=== PATIENT | female | born 1945 | race Caucasian/White ===

== ENCOUNTER 2017-07-12 08:47 | Emergency (ER) | payer MEDICARE ==
[2017-07-12] MEDS ORDERED: Albuterol/Ipratropium NEB.SOL* Albuterol 2.5 MG/Ipratropium 0.5 MG 3 ML INH ONE ×2 (09:41→11:46)
--- NOTE | 2017-07-12 09:46 | ED ---
Respiratory - HPI Summary HPI Summary: 71 female presents to ED with complaints of shortness of breath and trouble breathing that has been ongoing for the past month that has worsened today. States her symptoms seemed to worsen yesterday and it became very hard for her to breathe. Patient has been being treated by PCP Dr Malik outpatient for the past couple of weeks. Given steroid and albuterol with steroid that did give relief at first. However has been done with those medications for the past week. Patient has only been using albuterol inhaler which she states makes her cough more. Admits to nasal congestion, chronic sinus congestion, productive cough at times, producing mucus. Denies hemoptysis, sore throat and ear pain. Denies chest pain, abdominal pain, nausea, vomiting, and known fever/chills. States she has never had symptoms like these in the past. No respiratory history other than sarcoidosis a few years ago. No other complaints. Admits to being sitting in recliner often over the past couple of weeks due to trouble breathing. No long distance travel or cigarette use. Other rangel healthy. PMHx includes fibromyaglia, GERD, depression, sleep apnea. Denies leg swelling or leg pain. Exertion makes SOB worse however she is still SOB at rest. - History of Current Complaint Chief Complaint: EDUpperRespComplaint Stated Complaint: DIFFICULTY BREATHING Time Seen by Provider: 07/12/17 09:05 Hx Obtained From: Patient Onset/Duration: Sudden Onset, Lasting Weeks, Still Present, Worse Since Initial Severity: Moderate Current Severity: Severe Pain Intensity: 0 Character: Cough (Productive), Dyspnea at Rest Sputum Amount: Small Sputum Color: Yellow, Green - mucus like Aggravating Factor(s): URI, Exertion, Recumbent Position Alleviating Factor(s): Neb. Bronchodilators (Frequency Of Use), Steriods, Rest Associated Signs and Symptoms: SOB, URI, Wheezing, Nasal Congestion, Dyspnea - Risk Factors Pulmonary Embolism Risk Factors: Recent Bedrest - Allergy/Home Medications Allergies/Adverse Reactions: Allergies Allergy/AdvReac Type Severity Reaction Status Date / Time No Known Allergies Allergy Verified 07/12/17 08:55 PMH/Surg Hx/FS Hx/Imm Hx Endocrine/Hematology History: Denies: Hx Diabetes Cardiovascular History: Denies: Hx Hypertension, Other Cardiovascular Problems/Disorders Respiratory History: Reports: Other Respiratory Problems/Disorders - SARCOIDOSIS YRS AGO, sleep apnea Denies: Hx Asthma, Hx Chronic Obstructive Pulmonary Disease (COPD) GI History: Reports: Hx Gastroesophageal Reflux Disease, Hx Irritable Bowel Musculoskeletal History: Reports: Hx Arthritis, Hx Fibromyalgia Sensory History: Reports: Hx Contacts or Glasses Opthamlomology History: Reports: Hx Contacts or Glasses Neurological History: Reports: Hx Migraine - from age [age] then stoped hormone related Psychiatric History: Reports: Hx Depression, Hx Community Mental Health Tx - Cancer History Hx Chemotherapy: No Hx Radiation Therapy: No - Surgical History Surgery Procedure, Year, and Place: SINUSES Hx Anesthesia Reactions: No - Immunization History Immunizations Up to Date: Yes Infectious Disease History: No Infectious Disease History: Reports: Hx Shingles Denies: Traveled Outside the [place] in Last 30 Days - Family History Known Family History: Positive: None - Social History Alcohol Use: Rare Substance Use Type: Reports: None Smoking Status (MU): Never Smoked Tobacco Review of Systems Positive: Fatigue Positive: Sore Throat, Nasal Discharge Cardiovascular: Negative Positive: Shortness Of Breath, Cough Gastrointestinal: Negative Neurological: Negative All Other Systems Reviewed And Are Negative: Yes Physical Exam Triage Information Reviewed: Yes Vital Signs On Initial Exam: Initial Vitals Temp Pulse Resp BP Pulse Ox 97.6 F 65 20 190/97 93 07/12/17 08:52 07/12/17 08:52 07/12/17 08:52 07/12/17 08:52 07/12/17 08:52 elevated BP and pulse ox noted, improved throughout ED visit and was closely monitored 146/78 O2 96% upon dispo re-eval by me. Vital Signs Reviewed: Yes Appearance: Positive: Well-Appearing - SOB, No Pain Distress, Well-Nourished Skin: Positive: Warm, Skin Color Reflects Adequate Perfusion, Dry. Negative: Cold, Numb, Cyanosis @, Pale, Erythema @ Head/Face: Positive: Normal Head/Face Inspection Eyes: Positive: Conjunctiva Clear ENT: Positive: Hearing grossly normal, Pharynx normal, Nasal congestion, TMs normal, Uvula midline. Negative: Tonsillar swelling, Tonsillar exudate, Trismus , Muffled voice, Sinus tenderness, Other Respiratory/Lung Sounds: Positive: Clear to Auscultation, Breath Sounds Present , Rhonchi - bronchial breath sounds, Wheezes - inspiratory and expiratory diffuse, Unable to speak in full sentences - takes breaks in between 8-10 words , Other - <2 sec cap refill, no cyanosis or signs of respiratiry distress or accessory muscle use. However does appear SOB. Negative: Tracheal Deviation Cardiovascular: Positive: Normal, RRR, Pulses are Symmetrical in both Upper and Lower Extremities. Negative: Murmur, Rub Abdomen Description: Positive: Nontender, Soft Bowel Sounds: Positive: Present Musculoskeletal: Positive: Normal, Strength/ROM Intact Neurological: Positive: Normal, Sensory/Motor Intact, Alert, Oriented to Person Place, Time, CN Intact II-III, NV Bundle Intact Distally, Normal Gait, Facial Symmetry, Speech Normal - Tiffany Coma Scale Coma Scale Total: 15 Diagnostics - Vital Signs Vital Signs Temp Pulse Resp BP Pulse Ox 07/12/17 09:00 63 19 174/87 93 07/12/17 08:57 64 18 176/87 93 07/12/17 08:54 70 93 07/12/17 08:52 97.6 F 65 20 190/97 93 - Laboratory Result Diagrams: 07/12/17 09:52 07/12/17 09:52 Lab Statement: Any lab studies that have been ordered have been reviewed, and results considered in the medical decision making process. - Radiology chest Xray Interpretation: Positive (See Comments) - HYPERINFLATION, CONSISTENT WITH COPD. NO ACTIVE CARDIOPULMONARY DISEASE. Radiology Interpretation Completed By: Radiologist - EKG EKG Cardiac Rate: NL EKG Rhythm: Sinus Rhythm ST Segment: Normal Ectopy: None EKG Interpretation: NSR @ 64, LVH EKG Comparison: No Significant Change Re-Evaluation - Re-Evaluation First Eval Re-Evaluation Time: 10:28 Change: Improved - had some relief after duoneb Second Eval Re-Evaluation Time: 12:00 Change: Improved - feeling better, updated on lab and imaging results. walked around to check O2. discussed plan of treatment, safe to d/c Disposition - Course Course Of Treatment: labs obtained, chest xray, EKG and urinalysis. Xray showed signs of COPD, hyperinflation. unremarkable urine and rest of labs. Given duoneb had significant relief. Negative D dimer and monospot. D dimer obtained due to patient being SOB for 1 month without respiratory history and no signs of active infection other than possible viral bronchitis. Vitals improved throughout visit. Will treat with budesomide, azithromycin and prednisone. Continue inhaler. Recommend mucinex. Follow up PCP. Aware of worsening signs and symptoms. Patient was not hypoxic when walking around. CTA and RRR at discharge examination with much improved SOB and vitals with O2 at 96%. No other concerns at this time as other cardiorespiratory etiology was ruled out. - Differential Dx - Cardiopulmonary Differential Diagnoses - Cardiopulmonary: Acute Dyspnea, Bronchitis, Exacerbation Of COPD, Lower Resp Infection, Other - URI - Diagnoses Provider Diagnoses: Acute bronchitis with COPD, Acute dyspnea Discharge - Discharge Plan Condition: Stable Disposition: HOME Prescriptions: Azithromycin TAB* [Zithromax TAB (Z-JAZMÍN) 250 mg #6 tabs] 2 tab PO .TODAY, THEN 1 DAILY #1 jazmín Budesonide NEB* [Pulmicort Neb*] 0.25 mg INH DAILY #10 neb.soln predniSONE TAB* [Deltasone TAB*] 40 mg PO DAILY #10 tab Patient Education Materials: Acute Bronchitis (ED), COPD (Chronic Obstructive Pulmonary Disease) (ED), Dyspnea (ED) Referrals: Pamela Khan MD [Primary Care Provider] - Additional Instructions: Take prescribed medication as directed. Oral prednisone in the morning with antibiotic. Nebulizer at bedtime. Continue albuterol as needed throughout the day for SOB. Increase fluid intake and get plenty of rest. Recommend trying mucinex to help with congestion. Follow up with PCP within 3 days. Any new or worsening symptoms please seek medical attention and return to ED if having difficulty breathing or new symptoms, as we discussed.
[2017-07-12 10:01] LABS: Urine Bacteria Absent (Absent); Urine Bilirubin Negative (Negative); Urine Glucose Negative (Negative); Urine Nitrite Negative (Negative)
[2017-07-12 10:07] LABS: Hematocrit 42 % (35-47); Mean Corpuscular HGB Conc 33 g/dl (31-36); Mean Corpuscular Hemoglobin 29 pg (27-31); Mean Corpuscular Volume 88 fL (80-97); Mean Platelet Volume 9 um3 (7.4-10.4); Red Cell Distribution Width 14 % (10.5-15); White Blood Count 6.1 10^3/ul (3.5-10.8)
[2017-07-12 10:18] LABS: Albumin 4.1 g/dL (3.2-5.2); BUN/Creatinine Ratio 9.2 (8-20); C Reactive Protein 2.22 mg/L (< 5.00); Calcium 10.2 mg/dL (8.6-10.3); EGFR African American 71.9 (>60); EGFR Non-African American 55.9 (>60); Globulin 2.9 g/dL (2-4); Potassium 4.3 mmol/L (3.5-5.0); Total Bilirubin 0.7 mg/dL (0.2-1.0)
[2017-07-12 10:22] LABS: EBV Response NO
[2017-07-12 10:23] LABS: Troponin I 0.01 ng/mL (<0.04)
--- NOTE | 2017-07-12 10:26 | RAD ---
HISTORY: Shortness of breath COMPARISONS: December 30, 2013 VIEWS: 4: Frontal dual-energy and lateral views of the chest. FINDINGS: CARDIOMEDIASTINAL SILHOUETTE: The cardiomediastinal silhouette is normal. SILVER: The silver are normal. PLEURA: The costophrenic angles are sharp. No pleural abnormalities are noted. LUNG PARENCHYMA: There is hyperinflation with flattening of the diaphragm and expansion of the AP diameter of the chest. ABDOMEN: The upper abdomen is clear. There is no subphrenic gas. BONES AND SOFT TISSUES: Degenerative changes are noted. OTHER: None. IMPRESSION: HYPERINFLATION, CONSISTENT WITH COPD. NO ACTIVE CARDIOPULMONARY DISEASE.
[2017-07-12 10:27] LABS: Mono Internal Control QC Line Present
[2017-07-12 10:42] VITALS: BP 159/66
[2017-07-12 11:13] LABS: FIO2 2
[2017-07-12 11:16] LABS: PCO2 Arterial 35 mmHg (35-45)
--- NOTE | 2017-07-14 09:00 | PN ---
Progress Note - Progress Note Date of Service: 07/12/17 Note: Patient seen for SOB and diagnosed with bronchitis. Placed on Azithromycin. Was not complaining of UTI symptoms. Preliminary results grew >100,000 of kelbsiella pneumoniae. Azithromycin does have gram negative coverage. Will wait for final culture sensitivity results to determine susceptibility.
--- NOTE | 2017-07-15 12:06 | PN ---
Progress Note - Progress Note Date of Service: 07/15/17 Note: Patient urine grew Klebsiella pneumonia. scent script to pharmacy for cipro but spoke with patient and primary already saw the culture and placed patient on antibiotic so no further action required.
== END 2017-07-12 13:24 | disposition home or self-care (01) ==
LOC: ED 08:47
DX: J20.9 Acute bronchitis, unspecified (principal); J44.0 Chronic obstructive pulmonary disease with (acute) lower respiratory infection; R05 Cough; R06.02 Shortness of breath; J06.9 Acute upper respiratory infection, unspecified; R06.2 Wheezing; R09.81 Nasal congestion; R06.00 Dyspnea, unspecified
CPT/HCPCS: 36415; 36600; 71020; 80053; 81003; 81015; 82553; 82803; 83605; 83874; 83880; 84484; 85025; 85379; 86140; 86308; 87077; 87086; 87186; 93005; 94640; 99283; A9270-GY

== ENCOUNTER 2022-05-19 00:48 | Inpatient (IN) ==
[2022-05-19 02:06] LABS: ABS Eosinophils 0.3 10^3/ul (0-0.6); ABS Monocytes 0.6 10^3/ul (0-0.8); Eosinophil % 4.7 %; Hematocrit 40 % (35-47); Hemoglobin 12.9 g/dL (12.0-16.0); Lymphocyte % 16.6 %; Mean Corpuscular HGB Conc 33 g/dL (31-36); Mean Corpuscular Hemoglobin 29 pg (27-31); Mean Corpuscular Volume 90 fL (80-97); Mean Platelet Volume 8.6 fL (7.4-10.4); Platelet Count 162 10^3/uL (150-450); Red Blood Count 4.41 10^6 /uL (3.70-4.87); Red Cell Distribution Width 14 % (10-15); White Blood Count 5.8 10^3/uL (3.5-10.8)
[2022-05-19 02:10] LABS: INR 0.94 (0.89-1.11)
[2022-05-19] MEDS ORDERED: Albuterol HFA INHALER 8 gm MDI INH ONE (02:39)
[2022-05-19] MEDS ORDERED: methylPREDNISolone SOD SUCC 125 mg 2 ML VIAL IV ONE (02:40)
[2022-05-19 02:51] LABS: Albumin/Globulin Ratio 1.9 (1-3); Calcium 9.9 mg/dL (8.6-10.3); Globulin 2.1 g/dL (2-4); Total Bilirubin 0.4 mg/dL (0.2-1.0); Total Protein 6.1 g/dL (6.4-8.9); eGFR CKD-EPI 65.4 (>60)
[2022-05-19 03:32] LABS: High Sensitivity Troponin 1 Hr 9 pg/mL (<15)
[2022-05-19] MEDS ORDERED: Iohexol 350 (CONTRAST) 500 ML MDV IV ONE (06:01)
[2022-05-19] MEDS: Albuterol/Ipratropium NEB.SOL (2.5/0.5 MG) 3 ML NEB.SOLN INH SCH ×4 (06:16→20:01)
[2022-05-19 06:22] LABS: PCO2 Arterial 43 mmHg (35-45); PO2 Arterial 95 mmHg (80-100)
[2022-05-19 06:50] LABS: Magnesium 2.1 mg/dL (1.9-2.7)
[2022-05-19] MEDS: Heparin 5000 UNITS/ML 1 mL VIAL SUBCUT SCH ×4 (07:19→20:30)
[2022-05-19 08:37] LABS: C Reactive Protein 1.61 mg/L (<8.01)
[2022-05-19] MEDS: methylPREDNISolone SOD SUCC 40 mg/ml 1 ml VIAL IV SCH (14:38)
[2022-05-20] MEDS: Albuterol/Ipratropium NEB.SOL (2.5/0.5 MG) 3 ML NEB.SOLN INH SCH ×3 (00:30→11:35)
[2022-05-20] MEDS: methylPREDNISolone SOD SUCC 40 mg/ml 1 ml VIAL IV SCH (03:05)
[2022-05-20] MEDS: Heparin 5000 UNITS/ML 1 mL VIAL SUBCUT SCH ×3 (05:35→21:31)
[2022-05-20 06:20] LABS: ABS Lymphocytes 0.6 10^3/ul (1.0-4.8); ABS Monocytes 0.6 10^3/ul (0-0.8); ABS Neutrophils 8.6 10^3/ul (1.5-7.7); Hematocrit 37 % (35-47); Hemoglobin 12.4 g/dL (12.0-16.0); Lymphocyte % 6.3 %; Mean Corpuscular HGB Conc 33 g/dL (31-36); Mean Corpuscular Hemoglobin 30 pg (27-31); Mean Corpuscular Volume 90 fL (80-97); Mean Platelet Volume 9.1 fL (7.4-10.4); Nucleated Red Blood Cells % 0.1; Platelet Count 141 10^3/uL (150-450); Red Blood Count 4.15 10^6 /uL (3.70-4.87); Red Cell Distribution Width 15 % (10-15); White Blood Count 9.8 10^3/uL (3.5-10.8)
[2022-05-20 06:49] LABS: C Reactive Protein 1.52 mg/L (<8.01); Potassium 4.7 mmol/L (3.5-5.0); eGFR CKD-EPI 61.3 (>60)
[2022-05-20] MEDS ORDERED: Remdesivir 100 mg Vial 200 MG in NS 0.9% 250 ml 210 ML IV ONE (11:00)
[2022-05-20] MEDS ORDERED: Albuterol HFA INHALER 8 gm MDI INH PRN (11:22)
[2022-05-21] MEDS: Heparin 5000 UNITS/ML 1 mL VIAL SUBCUT SCH ×3 (05:38→22:17)
[2022-05-21 07:00] LABS: INR 0.92 (0.89-1.11)
[2022-05-21 07:23] LABS: Albumin 3.7 g/dL (3.2-5.2); Albumin/Globulin Ratio 1.8 (1-3); Calcium 9.6 mg/dL (8.6-10.3); Globulin 2.1 g/dL (2-4); Potassium 4.4 mmol/L (3.5-5.0); Total Bilirubin 0.5 mg/dL (0.2-1.0); Total Protein 5.8 g/dL (6.4-8.9); eGFR CKD-EPI 67.1 (>60)
[2022-05-21] MEDS ORDERED: Remdesivir 100 mg Vial 100 MG in NS 0.9% 250 ml 230 ML IV SCH (09:15)
[2022-05-21] MEDS: Benzocaine/Menthol LOZ MT PRN (09:25)
[2022-05-21] MEDS: Albuterol/Ipratropium NEB.SOL (2.5/0.5 MG) 3 ML NEB.SOLN INH SCH (11:30)
[2022-05-22] MEDS: Albuterol/Ipratropium NEB.SOL (2.5/0.5 MG) 3 ML NEB.SOLN INH SCH ×3 (00:43→19:16)
[2022-05-22] MEDS: Benzocaine/Menthol LOZ MT PRN (03:22)
[2022-05-22] MEDS: Heparin 5000 UNITS/ML 1 mL VIAL SUBCUT SCH ×3 (06:14→21:31)
[2022-05-22] MEDS ORDERED: Influenza vaccine *QUAD* *2022-23* 0.5 ML SYRINGE IM ONE (09:00)
[2022-05-22] MEDS ORDERED: Nystatin TOP POWDER 15 GM BTL TOPICAL SCH (23:30)
[2022-05-23] MEDS: Heparin 5000 UNITS/ML 1 mL VIAL SUBCUT SCH (05:43)
[2022-05-23 05:44] LABS: ABS Eosinophils 0.1 10^3/ul (0-0.6); ABS Lymphocytes 2.4 10^3/ul (1.0-4.8); ABS Monocytes 0.8 10^3/ul (0-0.8); ABS Neutrophils 4.5 10^3/ul (1.5-7.7); Eosinophil % 1.4 %; Hematocrit 39 % (35-47); Hemoglobin 12.7 g/dL (12.0-16.0); Lymphocyte % 30.4 %; Mean Corpuscular HGB Conc 33 g/dL (31-36); Mean Corpuscular Hemoglobin 30 pg (27-31); Mean Corpuscular Volume 90 fL (80-97); Mean Platelet Volume 9.4 fL (7.4-10.4); Nucleated Red Blood Cells % 0.1; Platelet Count 151 10^3/uL (150-450); Red Blood Count 4.28 10^6 /uL (3.70-4.87); Red Cell Distribution Width 14 % (10-15); White Blood Count 7.8 10^3/uL (3.5-10.8)
[2022-05-23 06:00] LABS: Calcium 9.4 mg/dL (8.6-10.3); Potassium 3.9 mmol/L (3.5-5.0); eGFR CKD-EPI 64.5 (>60)
[2022-05-23] MEDS: Albuterol/Ipratropium NEB.SOL (2.5/0.5 MG) 3 ML NEB.SOLN INH SCH (07:17)
[2022-05-23] MEDS ORDERED: Albuterol/Ipratropium NEB.SOL (2.5/0.5 MG) 3 ML NEB.SOLN INH PRN (07:23)
[2022-05-23 07:43] VITALS: BP 127/80
[2022-05-23] MEDS: Benzocaine/Menthol LOZ MT PRN (10:17)
== END 2022-05-23 10:55 | disposition home or self-care (01) | DRG 189 ==
LOC: ED 00:48 → EDHOLD 00:48 → SUATTDRO 05:38 → MED 13:40 → SUATTDRO 05-20 14:00
PROVIDERS: ADMIT Hospitalist; ATTEND Hospitalist

== ENCOUNTER 2022-07-22 14:48 | Observation (INO) ==
[2022-07-22 16:16] LABS: ABS Basophils 0.1 10^3/ul (0-0.2); ABS Eosinophils 0.2 10^3/ul (0-0.6); ABS Lymphocytes 1.6 10^3/ul (1.0-4.8); ABS Monocytes 0.7 10^3/ul (0-0.8); ABS Neutrophils 5.1 10^3/ul (1.5-7.7); Eosinophil % 3.1 %; Hematocrit 40 % (35-47); Hemoglobin 13.3 g/dL (12.0-16.0); Lymphocyte % 21.1 %; Mean Corpuscular HGB Conc 34 g/dL (31-36); Mean Corpuscular Hemoglobin 29 pg (27-31); Mean Corpuscular Volume 87 fL (80-97); Mean Platelet Volume 8.5 fL (7.4-10.4); Platelet Count 222 10^3/uL (150-450); Red Blood Count 4.55 10^6 /uL (3.70-4.87); Red Cell Distribution Width 14 % (10-15); White Blood Count 7.6 10^3/uL (3.5-10.8)
[2022-07-22 16:30] LABS: Urine Appearance Clear; Urine Bilirubin Negative (Negative); Urine Blood Negative (Negative); Urine Color Straw; Urine Glucose Negative (Negative); Urine Ketones Negative (Negative); Urine Nitrite Negative (Negative); Urine Protein Negative (Negative); Urine Specific Gravity 1.006 (1.002-1.030); Urine Urobilinogen Negative (Negative)
[2022-07-22 16:32] LABS: Activated Partial Thrombo Time 38.5 seconds (26.0-38.0); INR 0.96 (0.88-1.18)
[2022-07-22 16:51] LABS: Albumin 3.8 g/dL (3.2-5.2); Albumin/Globulin Ratio 1.7 (1-3); Calcium 9.7 mg/dL (8.6-10.3); Globulin 2.3 g/dL (2-4); HDL Cholesterol 55.2 mg/dL; Potassium 4.4 mmol/L (3.5-5.0); Total Bilirubin 0.4 mg/dL (0.2-1.0); Total Protein 6.1 g/dL (6.4-8.9); eGFR CKD-EPI 68.1 (>60)
[2022-07-22] MEDS ORDERED: Iohexol 350 (CONTRAST) 500 ML MDV IV ONE (17:10)
[2022-07-22] MEDS ORDERED: Enoxaparin 40 MG/0.4 ML SYR SUBCUT SCH (19:30)
[2022-07-23 06:17] LABS: ABS Basophils 0.1 10^3/ul (0-0.2); ABS Eosinophils 0.3 10^3/ul (0-0.6); ABS Lymphocytes 1.7 10^3/ul (1.0-4.8); ABS Monocytes 0.6 10^3/ul (0-0.8); ABS Neutrophils 2.9 10^3/ul (1.5-7.7); Eosinophil % 4.9 %; Hematocrit 38 % (35-47); Lymphocyte % 30.8 %; Mean Corpuscular HGB Conc 35 g/dL (31-36); Mean Corpuscular Hemoglobin 30 pg (27-31); Mean Corpuscular Volume 87 fL (80-97); Mean Platelet Volume 8.5 fL (7.4-10.4); Nucleated Red Blood Cells % 0.1; Platelet Count 196 10^3/uL (150-450); Red Blood Count 4.29 10^6 /uL (3.70-4.87); Red Cell Distribution Width 14 % (10-15); White Blood Count 5.6 10^3/uL (3.5-10.8)
[2022-07-23 06:53] LABS: Calcium 8.8 mg/dL (8.6-10.3); Potassium 4.3 mmol/L (3.5-5.0); eGFR CKD-EPI 78.7 (>60)
[2022-07-23 12:47] VITALS: BP 141/75
== END 2022-07-23 12:45 | disposition home or self-care (01) ==
LOC: EDHOLD 14:48 → ED 14:48 → SUATTDRO 17:04 → EDHOLD 07-23 12:44
PROVIDERS: ADMIT Internal Medicine; ATTEND Internal Medicine Hematology & Oncology

== ENCOUNTER 2023-01-17 18:06 | Observation (INO) ==
[2023-01-17] MEDS ORDERED: Albuterol 0.5% CONC CONTINUOUS NEB.SOL 5 mg/ml 20 ml BOT INH ONE (19:24)
[2023-01-17] MEDS ORDERED: Dexamethasone IV 4 MG/ML VIAL 1 ml VIAL IV SLOW PU ONE (19:24)
[2023-01-17] MEDS ORDERED: Albuterol (2.5 MG) 0.5 % CONC 0.5 ML NEB.SOLN INH ONE (19:34)
[2023-01-17 20:05] LABS: ABS Basophils 0.1 10^3/uL (0.0-0.1); ABS Eosinophils 0.3 10^3/uL (0.0-0.5); ABS Lymphocytes 1.8 10^3/uL (1.0-4.8); ABS Monocytes 0.8 10^3/uL (0.0-0.9); ABS Neutrophils 3.5 10^3/uL (1.5-7.6); ABS Nucleated RBC 0.02 10^3/ul; Eosinophil % 4.9 %; Hematocrit 41.3 % (35-45); Hemoglobin 13.9 g/dL (11.5-14.3); Lymphocyte % 27.2 %; Mean Corpuscular Hemoglobin 29.1 pg (27-33); Mean Corpuscular Hgb Conc 33.7 g/dL (31-36); Mean Corpuscular Volume 86.3 fL (80-97); Mean Platelet Volume 8.8 fL (7.5-11.2); Nucleated Red Blood Cells % 0.2 /100 WBC (0.0-0.4); Platelet Count 199 10^3/uL (150-450); Red Blood Count 4.79 10^6/uL (3.63-4.92); Red Cell Distribution Width 14.6 % (12-17); White Blood Count 6.5 10^3/uL (3.8-11.8)
[2023-01-17 20:22] LABS: Albumin 4.3 g/dL (3.2-5.2); Albumin/Globulin Ratio 1.5 (1-3); C Reactive Protein 3.74 mg/L (<8.01); Creatinine, Serum 0.94 mg/dL (0.51-0.95); Globulin 2.9 g/dL (2-4); Potassium 4.3 mmol/L (3.5-5.0); Total Bilirubin 0.5 mg/dL (0.2-1.0); Total Protein 7.2 g/dL (6.4-8.9); eGFR CKD-EPI 62.5 (>60)
[2023-01-17] MEDS ORDERED: Albuterol HFA INHALER 8 gm MDI INH PRN (23:37)
[2023-01-17] MEDS ORDERED: Albuterol/Ipratropium NEB.SOL (2.5/0.5 MG) 3 ML NEB.SOLN INH SCH (23:45)
[2023-01-18 02:44] LABS: ABS Lymphocytes 0.7 10^3/uL (1.0-4.8); ABS Monocytes 0.1 10^3/uL (0.0-0.9); ABS Neutrophils 5.2 10^3/uL (1.5-7.6); Eosinophil % 0.3 %; Hematocrit 41.2 % (35-45); Hemoglobin 13.9 g/dL (11.5-14.3); Lymphocyte % 11.4 %; Mean Corpuscular Hemoglobin 29.1 pg (27-33); Mean Corpuscular Hgb Conc 33.7 g/dL (31-36); Mean Corpuscular Volume 86.4 fL (80-97); Mean Platelet Volume 9.1 fL (7.5-11.2); Nucleated Red Blood Cells % 0.1 /100 WBC (0.0-0.4); Platelet Count 191 10^3/uL (150-450); Red Blood Count 4.77 10^6/uL (3.63-4.92); Red Cell Distribution Width 14.8 % (12-17); White Blood Count 6.1 10^3/uL (3.8-11.8)
[2023-01-18 02:58] LABS: Creatinine, Serum 0.95 mg/dL (0.51-0.95); Potassium 4.3 mmol/L (3.5-5.0); eGFR CKD-EPI 61.7 (>60)
[2023-01-18] MEDS: Albuterol/Ipratropium NEB.SOL (2.5/0.5 MG) 3 ML NEB.SOLN INH SCH ×2 (07:10→12:20)
[2023-01-18] MEDS ORDERED: Enoxaparin 40 MG/0.4 ML SYR SUBCUT SCH (09:00)
[2023-01-18 11:47] VITALS: BP 122/69
== END 2023-01-18 14:30 | disposition home or self-care (01) ==
LOC: EDHOLD 18:06 → ED 18:06 → SUATTDRO 22:27 → MED 23:44
PROVIDERS: ADMIT Internal Medicine; ATTEND Internal Medicine